=== PATIENT | female | born 1985 | race African-American/Black ===

== ENCOUNTER 2017-03-27 17:14 | Emergency (ER) | payer OTHER ==
[~2017-03-27] VITALS: Ht 157.5 cm; Wt 106.4 kg
[~2017-03-27 17:14] MED LIST: NAPROSYN500 MG PO; NOHOMEMEDS; VICODIN,LORT1 TABLET PO
[2017-03-27 17:52] LABS: MCH 25.3 PG (29.0-34.0); MCHC 31.4 G/DL (30.0-36.0); MCV 80.7 FL (83-99); MEAN PLAT.VOLUME 10.2 uM^3 (9.5-12.4); PLATELET COUNT 342 K/uL (156-360); RBC DIS.WIDTH-SD 52.6 % (39-53); RED BLOOD COUNT 4.46 M/uL (3.80-5.20); WHITE BLOOD COUNT 8.8 K/uL (4.1-10.2)
[2017-03-27 18:01] LABS: CHLORIDE 106 mEq/L (99-109); POTASSIUM 3.8 mEq/L (3.7-5.4); SODIUM 139 mEq/L (136-147)
[2017-03-27 18:03] LABS: GLUCOSE 93 mg/dL (70-99)
[2017-03-27 18:05] LABS: ANION GAP 9 MEQ/L (2-14)
[2017-03-27 18:07] LABS: GFR ESTIMATE (CALCULATED) > 59 mL/min/
[2017-03-27 18:08] LABS: UREA NITROGEN (BUN) 7 mg/dL (9-23)
[2017-03-27 18:16] LABS: QUANTITATIVE HCG < 4.0 MIU/ML
[2017-03-27] MEDS ORDERED: FERROUS SULFAT325 M2 PO (20:42)
[2017-03-27] MEDS ORDERED: INDOCIN25 MG PO (22:59)
[2017-03-27] MEDS ORDERED: PROVERA,CYCRIN10 MG PO (22:59)
[2017-03-27] MEDS ORDERED: ULTRACET1 TABLET PO (22:59)
[2017-03-27 23:41] VITALS: BP 116/65
== END 2017-03-27 23:43 | disposition home or self-care (01) ==
LOC: EME 17:14
PROVIDERS: Physician Assistant
DX: N92.0 Excessive and frequent menstruation with regular cycle (principal); N93.8 Other specified abnormal uterine and vaginal bleeding; N94.6 Dysmenorrhea, unspecified; Z98.51 Tubal ligation status
CPT/HCPCS: 76856; 80048; 84443; 84702; 85027; 85246 90; 99281; 99284; J3010